=== PATIENT | female | born 1945 | race American Indian/Alaskan Native ===

== ENCOUNTER 2017-05-21 21:43 | Inpatient (IN) | payer MEDICARE, OTHER ==
[2017-05-22] MEDS ORDERED: Acetaminophen 325 MG Tab PO PRN (02:01)
[2017-05-22] MEDS ORDERED: Calcium Carbonate 500 MG Tab.Chew PO PRN (02:01)
[2017-05-22] MEDS ORDERED: Albuterol/Ipratropium 3.0-0.5 MG/3 ML Neb Soln NEB PRN (02:10)
[2017-05-22] MEDS ORDERED: Sodium Chloride 0.9% 10 ML Syringe FLUSH PRN (02:17)
[2017-05-22] MEDS ORDERED: cefTRIAXone 1 GM Vial IM SCH (02:30)
[2017-05-22] MEDS ORDERED: cefTRIAXone 1 GM in Sodium Chloride 0.9% 50 ML IV SCH ×2 (03:00→22:00)
[2017-05-22] MEDS: Pantoprazole 40 MG Tab.CR PO SCH (07:59)
[2017-05-22] MEDS: Loratadine 10 MG Tab PO SCH (08:51)
[2017-05-22] MEDS: Aspirin 81 MG Tab.EC PO SCH (08:53)
[2017-05-22] MEDS: Losartan 50 MG Tab PO SCH (08:53)
[2017-05-22] MEDS: Potassium Chloride 10 MEQ Cap.ER PO SCH ×2 (08:54→21:14)
[2017-05-22] MEDS: atorvaSTATin 20 MG Tab PO SCH (08:55)
[2017-05-22] MEDS: NIFEdipine 30 MG Tab.ER PO SCH (08:55)
[2017-05-22] MEDS: FLUoxetine 20 MG Cap PO SCH (08:58)
[2017-05-22] MEDS: Montelukast 10 MG Tab PO SCH (08:58)
[2017-05-22] MEDS ORDERED: Potassium Chloride 20 MEQ Tab.ER PO SCH (09:00)
[2017-05-22] MEDS ORDERED: Azithromycin 250 MG Tab PO ONE (09:00)
--- NOTE | 2017-05-22 09:02 | HP ---
IDENTIFYING DATA: Lo Pierson is a 71-year-old single, female from [place]. CHIEF COMPLAINT: "I have bronchitis." HISTORY OF PRESENT ILLNESS: An elderly female, has a noted history of chronic persistent asthmatic lung disease with inhaled bronchodilator therapies. She was seen in the Urgent Care Clinic in the [facility] approximately four days ago with an acute respiratory infection with fevers reportedly of 103 degrees. She was placed on Levaquin and instructed to continue with bronchodilator therapies. She returned to the emergency room today noting resolution of fever, but ongoing chest congestion and cough and right-sided pleuritic pain. She has had no purulent sputum production or hemoptysis. Mild nasal congestion without drainage is reported. No pharyngitis, headaches, or visual disturbance. She has a remote history of tobacco use, abstaining for over 20 years' time. She has not yet received her annual influenza vaccine. She believes her pneumococcal vaccine to be current. No other family members residing in the household currently have respiratory infections. She has seen a reduced exercise tolerance due to her exacerbation of chronic respiratory disease, as well as lower extremity weakness. PAST SURGICAL HISTORY: The previous surgeries include: 1. Bilateral total knee arthroplasties. 2. Cholecystectomy. 3. Hysterectomy for benign disease. ADDITIONAL HEALTH PROBLEMS: Include: 1. Type 2 diabetes, currently not on pharmacologic therapy. 2. Hypertension. 3. Hyperlipidemia. 4. Chronic rheumatoid arthritis. 5. Dysthymic presentation. ALLERGIES: NONE NOTED. CURRENT MEDICATIONS: 1. Refresh eye drops, use b.i.d. p.r.n. eye irritation. 2. Acetaminophen 650 mg q.4 hours p.r.n. 3. Albuterol metered-dose inhaler q.4 hours p.r.n. 4. Calcium carbonate with vitamin D3 and vitamin K one tablet b.i.d. 5. Vitamin B12, 500 mcg daily. 6. Enbrel 50 mg subq weekly. 7. Ipratropium nasal spray daily/ipratropium nebulizer 0.2 mg q.8 hours p.r.n. 8. Levofloxacin 500 mg daily. 9. Methotrexate 2.5 mg tablets, seven tablets every Saturday. 10.Multivitamin one tablet daily. 11.Aspirin 81 mg daily. 12.Atorvastatin 20 mg daily. 13.Fexofenadine 180 mg daily. 14.Fluoxetine 20 mg daily. 15.Folic acid 1 mg daily. 16.Gabapentin 600 mg daily. HABITS: No current tobacco use. No routine use of coffee. Occasional soft drinks less than once per day. She denies alcohol use. No other illicit drug use. IMMUNIZATION HISTORY: Vaccine status as noted, has not received her annual influenza vaccine. She did receive pneumococcal vaccine one year ago. SOCIAL HISTORY: She is retired. Currently residing independently in her [place] residence. Her 51-year-old son and 12-year-old great grandson live with her. She does perform front desk manager, including cooking and cleaning and laundry. She continues to drive without difficulty. FAMILY HISTORY: She denies a familial history of obstructive pulmonary disease or acute respiratory infections including recent influenza. She states mother had tuberculosis as a young child. This was prior to Lo's . REVIEW OF SYSTEMS: NEUROLOGIC: No history of strokes, seizures, glaucoma, diabetic retinopathy, or peripheral neuropathy. She states a recent diagnosis of fibromyalgia with initiation of gabapentin. CARDIAC: History of type 2 diabetes. Previous use of metformin was discontinued for reasons of GI upset and diarrhea leading to resolution of her abdominal symptoms. Most recent A1c by patient's report was less than 7, with followup at six-month intervals anticipated. No history of ischemic heart disease, congestive heart failure, rheumatic fever, murmur, angina-like pain, syncope, or near syncope. Cardiac evaluation including stress test and an echocardiogram of approximately one year ago by patient's second-hand report was normal. RESPIRATORY: Chronic intermittent asthmatic lung disease with p.r.n. use of albuterol metered-dose inhaler. GASTROINTESTINAL: No history of chronic dyspepsia, reflux disease, hepatitis, jaundice, melena, or hematochezia. Status post cholecystectomy. No current bowel complaints. GENITOURINARY: She rises once to twice nightly to void. No history of diabetic nephropathy. She does have a previous history of ureterolithiasis. MUSCULOSKELETAL: Fibromyalgia accompanied by chronic rheumatoid arthritis, followed by Rheumatology Services at [facility]. She has had previous bilateral total knee arthroplasties. PHYSICAL EXAMINATION: GENERAL: Appearance is that of an adult female, resting comfortably in bed. VITAL SIGNS: Temperature was 97.5, respiratory rate was 22, pulse was 106, and O2 saturations were 92% with a blood pressure of 141/70 on presentation to the Urgent Care Clinic today. HEENT: Hearing is intact. Canals and TMs are normal. Pupils are reactive to light. Sclerae are anicteric. Extraocular eye movements are intact. No nasal congestion. No oral mucosal lesions. Mucosa is moist, pink, and non-inflamed. Dentures are worn. NECK: No adenopathy or nuchal rigidity or stridor. Brisk carotid pulses. No bruits or JVD. LUNGS: Resonant and non-tachypneic. No retractions or rales are heard. She does have slightly diminished breath sounds as well as mild end-expiratory wheezes, symmetrical in presentation. HEART: Regular without murmurs, gallops, or rubs. Normal S1 and S2. ABDOMEN: Obese, soft, nontender, and nondistended. No organomegaly. Active sounds. Good femoral pulses. No abdominal bruits. No CVA pain. GENITOURINARY: Omitted. RECTAL: Omitted. EXTREMITIES: Good radial and posterior tibial pulses. No pitting edema. No ischemic skin changes or open lesions. SKIN: Warm, pink, and dry without diaphoresis. No cyanosis or clubbing of the nails. LABORATORY DATA: Labs obtained in the Urgent Care Clinic with earlier visit include a WBC of 8.2, hemoglobin of 12.9, hematocrit of 41.7, and platelet count of 294,000. Sodium was 144, potassium was 3.5, BUN was 15, creatinine was 0.7, glucose was 153, calcium was 9, alkaline phosphatase was 96, and AST was 27. DIAGNOSTIC STUDIES: Chest x-ray suggests possible early basilar infiltrates. IMPRESSION: 1. Bronchitic illness in an elderly female, failing to respond and clear with oral antibiotic therapy. 2. Exacerbation of underlying chronic intermittent asthmatic lung disease. 3. Type 2 diabetes, not requiring pharmacologic management. 4. Hypertension. 5. Hyperlipidemia. 6. Obesity. 7. Reports of obstructive sleep apnea with CPAP therapy. 8. Rheumatoid arthritis with methotrexate and Enbrel therapies. PLAN: The patient was admitted to Inpatient Service. We will switch antibiotics to a combination of IV Rocephin and oral azithromycin with antibiotics previously on board. Cultures are not obtained today. We will obtain followup CBC and BMP in approximately 24 hours for review. Influenza studies by nasal swab are requested. If positive, we will initiate antiviral therapies. Continue with antilipemic and antihypertensive therapies. Enbrel and methotrexate have been held during period of acute febrile illness. If respiratory symptoms fail to show good symptomatic control with use of bronchodilator therapies, we will also provide a short course of systemic steroids. Full code status is provided. A heart-healthy diet is requested today. Allow ambulation and activity as tolerated. Anticipate discharge in less than 92 hours. Douglas Aguilar MD /[id number]
[2017-05-22] MEDS ORDERED: FLU Vacc TS 2017-18 (65yr UP)/PF 180 MCG/0.5 ML Syringe IM ONE (10:00)
[2017-05-22] MEDS ORDERED: Albuterol 0.083% 2.5 MG/3 ML Neb Soln NEB PRN (12:14)
[2017-05-22] MEDS ORDERED: 50% Dextrose in Water 50 ML Syringe IV PRN (12:16)
[2017-05-22] MEDS ORDERED: Glucose Gel 15 GM in 37.5 GM Tube PO PRN (12:16)
--- NOTE | 2017-05-22 12:22 | PCM.PN ---
- General Info Date of Service: 05/22/17 Functional Status: Reports: Pain Controlled, Tolerating Diet - Review of Systems General: Denies: Fever, Chills Pulmonary: Reports: Shortness of Breath, Cough, Wheezing. Denies: Pleuritic Chest Pain, Sputum, Hemoptysis Cardiovascular: Reports: Dyspnea on Exertion. Denies: Chest Pain, Palpitations , Orthopnea, PND, Edema Gastrointestinal: Reports: No Symptoms Systems Review Comment:: Ms. Pierson is a 71-year-old woman who was admitted last night by Dr. Aguilar with shortness of breath secondary to asthma exacerbation and underlying pneumonia. She has a long-standing history of asthma and was recently seen for fever and cough. He was started on oral antibiotic therapy with levofloxacin, fever resolved but shortness of breath became worse. She was reevaluated yesterday and [facility], chest x-ray obtained there apparently showed bibasilar infiltrates. She was referred here for hospitalization, cultures were obtained and she's been started on oral azithromycin as well as IV Rocephin. She is feeling somewhat better today but continues to have bilateral expiratory wheezes. - Patient Data Vitals - Most Recent: Last Vital Signs Temp 98.8 F 05/22/17 11:00 Pulse 76 05/22/17 11:00 Resp 18 05/22/17 11:00 BP 118/57 L 05/22/17 11:00 Pulse Ox 92 L 05/22/17 11:00 Weight - Most Recent: 258 lb 8.013 oz I&O - Last 24 Hours: Intake & Output 05/21/17 05/22/17 05/22/17 22:59 06:59 14:59 Intake Total 180 480 Balance 180 480 [place] Results Last 24 Hours: Microbiology 05/22/17 02:52 Influenza Type A Antigen Screen - Final Nasal, Right NEGATIVE INFLUENZA A VIRUS AG Influenza Type B Antigen Screen - Final NEGATIVE INFLUENZA B VIRUS AG Med Orders - Current: Current Medications Acetaminophen (Tylenol) 650 mg PO Q4H PRN PRN Reason: analgesia/fever Last Admin: 05/22/17 02:49 Dose: 650 mg Albuterol (Proventil Neb Soln) 2.5 mg NEB Q4H PRN PRN Reason: Dyspnea Albuterol/Ipratropium (Duoneb 3.0-0.5 Mg/3 Ml) 3 ml NEB QIDRT [facility] Aspirin (Halfprin) 81 mg PO DAILY [facility] Last Admin: 05/22/17 08:53 Dose: 81 mg Atorvastatin Calcium (Lipitor) 20 mg PO DAILY [facility] Last Admin: 05/22/17 08:55 Dose: 20 mg Azithromycin (Zithromax) 250 mg PO DAILY [facility] Stop: 05/26/17 09:01 Calcium Carbonate/Glycine (Tums) 500 mg PO Q4H PRN PRN Reason: Indigestion Fluoxetine HCl (Prozac) 40 mg PO DAILY [facility] Last Admin: 05/22/17 08:58 Dose: 40 mg Folic Acid (Folic Acid) 1 mg PO BEDTIME [facility] Gabapentin (Neurontin) 600 mg PO BEDTIME [facility] Ceftriaxone Sodium 1 gm/ (Sodium Chloride) 50 mls @ 100 mls/hr IV Q24H [facility] Loratadine (Claritin) 10 mg PO DAILY [facility] Last Admin: 05/22/17 08:51 Dose: 10 mg Losartan Potassium (Cozaar) 50 mg PO DAILY [facility] Last Admin: 05/22/17 08:53 Dose: 50 mg Montelukast Sodium (Singulair) 10 mg PO DAILY [facility] Last Admin: 05/22/17 08:58 Dose: 10 mg Nifedipine (Procardia Xl) 60 mg PO DAILY [facility] Last Admin: 05/22/17 08:55 Dose: 60 mg Pantoprazole Sodium (Protonix) 40 mg PO ACBREAKFAST [facility] Last Admin: 05/22/17 07:59 Dose: 40 mg Potassium Chloride (Potassium Chloride) 30 meq PO BID [facility] Last Admin: 05/22/17 08:54 Dose: 30 meq Prednisone (Prednisone) 40 mg PO WITHBREAKFAST [facility] Sodium Chloride (Saline Flush) 10 ml FLUSH ASDIRECTED PRN PRN Reason: Keep Vein Open Trazodone HCl (Trazodone) 25 mg PO BEDTIME [facility] Discontinued Medications Albuterol/Ipratropium (Duoneb 3.0-0.5 Mg/3 Ml) 3 ml NEB Q4H PRN PRN Reason: Dyspnea Last Admin: 05/22/17 07:59 Dose: 3 ml Azithromycin (Zithromax) 500 mg PO ONETIME ONE Stop: 05/22/17 09:01 Last Admin: 05/22/17 08:57 Dose: 500 mg Ceftriaxone Sodium 1 gm/ (Sodium Chloride) 50 mls @ 100 mls/hr IV Q24H [facility] Last Admin: 05/22/17 02:50 Dose: 100 mls/hr Potassium Chloride (Klor-Con M20) 30 meq PO BID [facility] - Exam Quality Assessment: DVT Prophylaxis General: Alert, Oriented, Cooperative, Mild Distress Lungs: Normal Respiratory Effort, Rhonchi, Wheezing. No: Crackles, Rales, Rub, Stridor Cardiovascular: Regular Rate, Regular Rhythm, No Murmurs GI/Abdominal Exam: Normal Bowel Sounds, Soft, Non-Tender, No Distention Extremities: Non-Tender, No Pedal Edema Skin: Warm, Dry, Intact - Problem List Review Problem List Initiated/Reviewed/Updated: Yes - My Orders Last 24 Hours: My Active Orders 05/22/17 12:14 Albuterol [Proventil Neb Soln] 2.5 mg NEB Q4HRRT PRN 05/22/17 12:15 RT Aerosol Therapy [RC] ASDIRECTED predniSONE 40 mg PO WITHBREAKFAST 05/22/17 12:16 Blood Glucose Check, Bedside [RC] QIDACANDBED Communication Order [RC] ASDIRECTED Diabetes Education [RC] Click to Edit Notify Provider [RC] PRN Dextrose 50% in Water 50 ml IV ONETIME PRN Dextrose [Glutose 15] 15 gm PO ONETIME PRN 05/22/17 16:00 Albuterol/Ipratropium [DuoNeb 3.0-0.5 MG/3 ML] 3 ml NEB QID 05/22/17 16:30 GLUCOSE POC LAB TO COLLECT [POC] QIDACANDBED 05/22/17 17:00 Insulin Aspart [NovoLOG] See Protocol SUBCUT QIDACANDBED 05/22/17 21:00 GLUCOSE POC LAB TO COLLECT [POC] QIDACANDBED 05/23/17 07:30 GLUCOSE POC LAB TO COLLECT [POC] QIDACANDBED 05/23/17 11:30 GLUCOSE POC LAB TO COLLECT [POC] QIDACANDBED 05/23/17 16:30 GLUCOSE POC LAB TO COLLECT [POC] QIDACANDBED 05/23/17 21:00 GLUCOSE POC LAB TO COLLECT [POC] QIDACANDBED 05/24/17 07:30 GLUCOSE POC LAB TO COLLECT [POC] QIDACANDBED 05/24/17 11:30 GLUCOSE POC LAB TO COLLECT [POC] QIDACANDBED 05/24/17 16:30 GLUCOSE POC LAB TO COLLECT [POC] QIDACANDBED 05/24/17 21:00 GLUCOSE POC LAB TO COLLECT [POC] QIDACANDBED 05/25/17 07:30 GLUCOSE POC LAB TO COLLECT [POC] QIDACANDBED - Plan Plan:: ASSESSMENT AND PLAN BIBASILAR PNEUMONIA-afebrile and hemodynamically stable -Continue current antibiotic therapy with azithromycin and ceftriaxone -Cultures pending ASTHMA EXACERBATION-likely secondary to underlying infection -Prednisone 40 mg by mouth daily -Supplemental oxygen as needed -Nebulizer therapy with albuterol and duo nebs TYPE 2 DIABETES MELLITUS-currently managed with diet -4 times a day glucometers -Low-dose sliding scale NovoLog MAINTENANCE ISSUES -DVT prophylaxis; Lovenox 40 mg subcutaneous daily -GI prophylaxis; not indicated -Tobar catheter; not indicated -Nutrition; consistent carb -Nicotine dependence; not required CODE STATUS-FULL CODE ADMISSION STATUS-patient will be admitted to inpatient status, expect at least a 2 night hospital stay for evaluation and management of problems as outlined above. At the time of this admission I do not reasonably expected evaluation and management of this problem will require more than a 96 hour hospital stay. DISPOSITION-anticipate discharge to home after the hospital stay. PRIMARY CARE PROVIDER-S
[2017-05-22] MEDS: predniSONE 20 MG Tab PO SCH (12:46)
[2017-05-22] MEDS: Albuterol/Ipratropium 3.0-0.5 MG/3 ML Neb Soln NEB SCH ×2 (14:35→21:13)
[2017-05-22] MEDS: Enoxaparin 40 MG/0.4 ML Syringe SUBCUT SCH (14:37)
[2017-05-22] MEDS: Insulin Aspart 100 Units/ML 3 ML Pen SUBCUT SCH ×2 (17:15→21:12)
[2017-05-22] MEDS ORDERED: Gabapentin 300 MG Cap PO SCH (21:00)
[2017-05-22] MEDS ORDERED: traZODone 50 MG Tab PO SCH (21:00)
[2017-05-22] MEDS ORDERED: Folic Acid 1 MG Tab PO SCH (21:00)
[2017-05-23] MEDS: Pantoprazole 40 MG Tab.CR PO SCH (07:31)
[2017-05-23] MEDS: Insulin Aspart 100 Units/ML 3 ML Pen SUBCUT SCH ×2 (07:32→11:30)
[2017-05-23] MEDS: Albuterol/Ipratropium 3.0-0.5 MG/3 ML Neb Soln NEB SCH ×2 (07:43→10:54)
[2017-05-23] MEDS ORDERED: Azithromycin 250 MG Tab PO SCH (09:00)
[2017-05-23] MEDS: predniSONE 20 MG Tab PO SCH (09:05)
[2017-05-23] MEDS: Losartan 50 MG Tab PO SCH (09:06)
[2017-05-23] MEDS: Loratadine 10 MG Tab PO SCH (09:06)
[2017-05-23] MEDS: atorvaSTATin 20 MG Tab PO SCH (09:07)
[2017-05-23] MEDS: Aspirin 81 MG Tab.EC PO SCH (09:07)
[2017-05-23] MEDS: Potassium Chloride 10 MEQ Cap.ER PO SCH (09:12)
[2017-05-23] MEDS: NIFEdipine 30 MG Tab.ER PO SCH (09:12)
[2017-05-23] MEDS: FLUoxetine 20 MG Cap PO SCH (09:13)
[2017-05-23] MEDS: Montelukast 10 MG Tab PO SCH (09:14)
[2017-05-23] MEDS ORDERED: FLU Vacc TS 2017-18 (65yr UP)/PF 180 MCG/0.5 ML Syringe IM ONE (10:00)
[2017-05-23 11:49] VITALS: BP 152/62
--- NOTE | 2017-05-23 12:23 | PCM.DCSUM1 ---
Discharge Summary - Hospital Course Brief History: Ms. Pierson is a 71-year-old woman who was admitted through the emergency department with shortness of breath secondary to asthma exacerbation and pneumonia. - Discharge Data Discharge Date: 05/23/17 Discharge Disposition: Home, Self-Care 01 Condition: Fair - Discharge Diagnosis/Problem(s) (1) Asthma exacerbation SNOMED Code(s): 996615161 ICD Code: J45.901 - UNSPECIFIED ASTHMA WITH (ACUTE) EXACERBATION Status: Acute Current Visit: Yes (2) Pneumonia SNOMED Code(s): 582392053 ICD Code: J18.9 - PNEUMONIA, UNSPECIFIED ORGANISM Status: Acute Current Visit: Yes - Patient Summary/Data Hospital Course: Ms. Pierson is a 71-year-old woman with a known history of asthma. She was seen and evaluated in the clinic week prior to this admission and was felt to have asthma exacerbation secondary to bronchitis. She was placed on levofloxacin, white blood cell count normalized and she became afebrile. Despite obvious improvement in infection she continued to have difficulty with shortness of breath and actually became worse. She was seen for reevaluation chest x-ray showed bibasilar infiltrates and she was referred to our hospital for hospitalization. She was admitted by Dr. Aguilar, influenza antigens were found to be negative. She was started on IV antibiotic therapy with Rocephin and also started on oral antibiotic therapy with azithromycin. She received supplemental oxygen as well as nebulizer therapy. Over the next 2 days she was started on prednisone 40 mg daily and by the time of discharge reported marked improvement in her shortness of breath. She remained hemodynamically stable throughout the hospitalization with no significant temperature elevations. She will be discharged home on oral antibiotic therapy with doxycycline 100 mg twice daily for an additional 7 days. She will be on 4 days prednisone 40 mg daily. Activity will be as tolerated and she will resume her usual diet. Because of her history of diabetes glucometers were monitored during hospital stay and she was placed on low-dose sliding scale NovoLog. Follow-up appointment will be scheduled with her primary care provider within one week. - Patient Instructions Diet: Usual Diet as Tolerated Activity: As Tolerated Other/Special Instructions: Please schedule follow-up appointment with primary care provider within one week - Discharge Plan Prescriptions/Med Rec: Doxycycline [Vibramycin] 100 mg PO BID #14 cap Prednisone [IJD: predniSONE] 40 mg PO DAILY #8 tablet Home Medications: Home Meds Acetaminophen [Tylenol] 650 mg PO Q4H PRN 05/22/17 [History] Albuterol Sulfate 0.63 mg NEB Q8H PRN 05/22/17 [History] Albuterol Sulfate [Proair Respiclick] 1 - 2 puff INH Q4HR PRN 05/22/17 [History] Aspirin [Halfprin] 81 mg PO DAILY 05/22/17 [History] Ca Carbonate/Vitamin D3/Vit K [Calcium + D Soft Chewable Tab] 1 each PO BID 12/03 [History] Cyanocobalamin (Vitamin B-12) [B-12] 500 mcg PO DAILY 05/22/17 [History] Etanercept [Enbrel] 50 mg SQ WEEKLY 05/22/17 [History] FLUoxetine [PROzac] 40 mg PO DAILY 05/22/17 [History] Fexofenadine HCl 180 mg PO DAILY 05/22/17 [History] Folic Acid 1 mg PO BEDTIME 05/22/17 [History] Gabapentin [Neurontin] 600 mg PO BEDTIME 05/22/17 [History] Ipratropium [place] 0.2 mg NEB Q8H PRN 05/22/17 [History] Ipratropium [Atrovent 0.06% Nasal [place]] 15 ml ANGEL DAILY 05/22/17 [History] Levofloxacin 500 mg PO DAILY 05/22/17 [History] Losartan [Cozaar] 50 mg PO DAILY 05/22/17 [History] Methotrexate 2.5 mg PO WEEKLY 05/22/17 [History] Montelukast Sodium [Singulair] 10 mg PO DAILY 05/22/17 [History] Multivitamins [Tab-A-[place]] 2 tab PO DAILY 05/22/17 [History] NIFEdipine [Nifedipine ER] 60 mg PO DAILY 05/22/17 [History] Pantoprazole Sodium [Protonix] 40 mg PO DAILY 05/22/17 [History] Polyvinyl Alcohol/Povidone/Pf [Refresh Classic Eye Drops] 1 each OP Q12H PRN 12/03 [History] Potassium Chloride [Klor-Con M20] 30 meq PO BID 05/22/17 [History] atorvaSTATin Calcium [Atorvastatin Calcium] 20 mg PO DAILY 05/22/17 [History] traZODone 25 mg PO BEDTIME 05/22/17 [History] Doxycycline [Vibramycin] 100 mg PO BID #14 cap 05/23/17 [Rx] Prednisone [IJD: predniSONE] 40 mg PO DAILY #8 tablet 05/23/17 [Rx] - Patient Data Vitals - Most Recent: Last Vital Signs Temp 97.2 F 05/23/17 11:00 Pulse 71 05/23/17 11:00 Resp 16 05/23/17 11:00 BP 152/62 H 05/23/17 11:00 Pulse Ox 96 05/23/17 11:00 Weight - Most Recent: 258 lb 8.013 oz I&O - Last 24 hours: Intake & Output 05/22/17 05/23/17 05/23/17 22:59 06:59 14:59 Intake Total 600 240 Balance 600 240 Lab Results - Last 24 hrs: Laboratory Results - last 24 hr 05/23/17 05/23/17 Range/Units 02:12 02:12 WBC 8.2 (4.5-11.0) K/uL RBC 4.45 (3.30-5.50) M/uL Hgb 11.9 L (12.0-15.0) g/dL Hct 37.9 (36.0-48.0) % MCV 85 (80-98) fL MCH 27 (27-31) pg MCHC 31 L (32-36) % Plt Count 306 (150-400) K/uL Sodium 141 (140-148) mmol/L Potassium 3.7 (3.6-5.2) mmol/L Chloride 106 (100-108) mmol/L Carbon Dioxide 27 (21-32) mmol/L Anion Gap 8.4 (5.0-14.0) mmol/L BUN 15 (7-18) mg/dL Creatinine 0.7 (0.6-1.0) mg/dL Est Cr Clr Drug Dosing 53.71 mL/min Estimated GFR (MDRD) > 60 (>60) Glucose 117 H (74-106) mg/dL Calcium 8.7 (8.5-10.1) mg/dL Med Orders - Current: Current Medications Acetaminophen (Tylenol) 650 mg PO Q4H PRN PRN Reason: analgesia/fever Last Admin: 05/22/17 02:49 Dose: 650 mg Albuterol (Proventil Neb Soln) 2.5 mg NEB Q4H PRN PRN Reason: Dyspnea Albuterol/Ipratropium (Duoneb 3.0-0.5 Mg/3 Ml) 3 ml NEB QIDRT [facility] Last Admin: 05/23/17 10:54 Dose: 3 ml Aspirin (Halfprin) 81 mg PO DAILY [facility] Last Admin: 05/23/17 09:07 Dose: 81 mg Atorvastatin Calcium (Lipitor) 20 mg PO DAILY [facility] Last Admin: 05/23/17 09:07 Dose: 20 mg Azithromycin (Zithromax) 250 mg PO DAILY [facility] Stop: 05/26/17 09:01 Last Admin: 05/23/17 09:15 Dose: 250 mg Calcium Carbonate/Glycine (Tums) 500 mg PO Q4H PRN PRN Reason: Indigestion Dextrose (Glutose 15) 15 gm PO ONETIME PRN PRN Reason: Hypoglycemia Dextrose/Water (Dextrose 50% In Water) 50 ml IV ONETIME PRN PRN Reason: Hypoglycemia Enoxaparin Sodium (Lovenox) 40 mg SUBCUT Q24H [facility] Last Admin: 05/22/17 14:37 Dose: 40 mg Fluoxetine HCl (Prozac) 40 mg PO DAILY [facility] Last Admin: 05/23/17 09:13 Dose: 40 mg Folic Acid (Folic Acid) 1 mg PO BEDTIME [facility] Last Admin: 05/22/17 21:13 Dose: 1 mg Gabapentin (Neurontin) 600 mg PO BEDTIME [facility] Last Admin: 05/22/17 21:13 Dose: 600 mg Ceftriaxone Sodium 1 gm/ (Sodium Chloride) 50 mls @ 100 mls/hr IV Q24H [facility] Last Admin: 05/22/17 21:14 Dose: 100 mls/hr Insulin Aspart (Novolog) 0 unit SUBCUT QIDACANDBED [facility] PRN Reason: Protocol Last Admin: 05/23/17 07:32 Dose: Not Given Loratadine (Claritin) 10 mg PO DAILY [facility] Last Admin: 05/23/17 09:06 Dose: 10 mg Losartan Potassium (Cozaar) 50 mg PO DAILY [facility] Last Admin: 05/23/17 09:06 Dose: 50 mg Montelukast Sodium (Singulair) 10 mg PO DAILY [facility] Last Admin: 05/23/17 09:14 Dose: 10 mg Nifedipine (Procardia Xl) 60 mg PO DAILY [facility] Last Admin: 05/23/17 09:12 Dose: 60 mg Pantoprazole Sodium (Protonix) 40 mg PO ACBREAKFAST [facility] Last Admin: 05/23/17 07:31 Dose: 40 mg Potassium Chloride (Potassium Chloride) 30 meq PO BID [facility] Last Admin: 05/23/17 09:12 Dose: 30 meq Prednisone (Prednisone) 40 mg PO WITHBREAKFAST [facility] Last Admin: 05/23/17 09:05 Dose: 40 mg Sodium Chloride (Saline Flush) 10 ml FLUSH ASDIRECTED PRN PRN Reason: Keep Vein Open Trazodone HCl (Trazodone) 25 mg PO BEDTIME [facility] Last Admin: 05/22/17 21:14 Dose: 25 mg Discontinued Medications Albuterol/Ipratropium (Duoneb 3.0-0.5 Mg/3 Ml) 3 ml NEB Q4H PRN PRN Reason: Dyspnea Last Admin: 05/22/17 07:59 Dose: 3 ml Azithromycin (Zithromax) 500 mg PO ONETIME ONE Stop: 05/22/17 09:01 Last Admin: 05/22/17 08:57 Dose: 500 mg Ceftriaxone Sodium 1 gm/ (Sodium Chloride) 50 mls @ 100 mls/hr IV Q24H [facility] Last Admin: 05/22/17 02:50 Dose: 100 mls/hr Potassium Chloride (Klor-Con M20) 30 meq PO BID [facility] *Q Meaningful Use (DIS) - VTE *Q VTE Criteria *Q: - Stroke *Q Stroke Criteria *Q: - AMI *Q AMI Criteria *Q:
[2017-05-23] MEDS: Enoxaparin 40 MG/0.4 ML Syringe SUBCUT SCH (14:00)
== END 2017-05-23 14:15 | disposition home or self-care (01) | DRG 194 ==
LOC: JP.MS 23:51
PROVIDERS: ADMIT Family Medicine; ATTEND Family Medicine
DX: J18.9 Pneumonia, unspecified organism (principal); J45.901 Unspecified asthma with (acute) exacerbation; Z68.43 Body mass index [BMI] 50.0-59.9, adult; Z87.891 Personal history of nicotine dependence; E11.9 Type 2 diabetes mellitus without complications; I10 Essential (primary) hypertension; E78.5 Hyperlipidemia, unspecified; M06.80 Other specified rheumatoid arthritis, unspecified site; M79.7 Fibromyalgia; G47.33 Obstructive sleep apnea (adult) (pediatric); Z96.653 Presence of artificial knee joint, bilateral; E66.9 Obesity, unspecified; Z79.82 Long term (current) use of aspirin; Z79.52 Long term (current) use of systemic steroids; Z23 Encounter for immunization
CPT/HCPCS: 36415; 80048; 82962; 85027; 87804; 90662; 94640; A9270-GY; G0008; J0696; J1650; J7050; J7620